=== PATIENT | male | born 1980 | race Caucasian/White ===

== ENCOUNTER 2024-02-04 10:31 | Emergency (ER) | payer OTHER, SELFPAY ==
[2024-02-04 10:42] VITALS: BP 142/94; PULSE 90; RESP 20; TEMP 36.8; O2SAT 100
--- NOTE | 2024-02-04 12:08 | ED.EAR ---
HPI - Ear Problem General Chief complaint: Ear Stated complaint: Ear Time Seen by Provider: 02/04/24 12:08 Source: patient, RN notes reviewed and old records reviewed Mode of arrival: ambulatory Limitations: no limitations History of Present Illness HPI Narrative: 43-year-old male to Express Care with complaint of right ear pain, decreased hearing and feeling off balance for 1 week. Patient denies any other sick symptoms at this time. Patient able tolerate fluids by mouth. Patient resting comfortably in exam room in no acute distress. Respirations even and nonlabored. Related Data Home Medications Medication Instructions Recorded Confirmed folic acid 1 mg tablet 1 mg PO DAILY 02/04/24 02/04/24 gabapentin 100 mg capsule 100 mg PO TID 02/04/24 02/04/24 hydroxyzine pamoate 50 mg capsule 50 mg PO DAILY PRN Anxiety 02/04/24 02/04/24 metoprolol tartrate 100 mg tablet 100 mg PO BID 02/04/24 02/04/24 potassium chloride 20 mEq 20 meq PO BID 02/04/24 02/04/24 tablet,extended release(part/cryst) thiamine mononitrate (vit B1) 100 100 mg PO DAILY 02/04/24 02/04/24 mg tablet (Vitamin B-1 (mononitrate)) Allergies Allergy/AdvReac Type Severity Reaction Status Date / Time No Known Allergies Allergy Verified 02/04/24 11:08 Review of Systems Review of Systems: All systems reviewed & are unremarkable except as noted in HPI and below Constitutional: Constitutional: Reports no additional constitutional complaints Eyes: Eyes: Reports no additional eye complaints ENT: Reports as per HPI, Denies Normal hearing present ( right ear) and Reports otalgia ( Right) Cardiovascular: Cardiovascular: Reports no additional cardiovascular complaints, Denies chest pain and Denies dyspnea Respiratory: Respiratory: Reports no additional respiratory complaints, Denies cough and Denies dyspnea Musculoskeletal: Musculoskeletal: Reports no additional musculoskeletal complaints Neurologic: Reports as per HPI and Reports dizziness ( intermittent) Psychiatric: Psychiatric: Reports no additional psychiatric complaints PMFSH Comments At the time of my signature, I reviewed and agree with the nursing past medical, surgical, social, and family history. There is no relevant family history pertinent to the patient complaint. Exam Const: General: cooperative, no acute distress, alert and well nourished Nutritional Appearance: well nourished Orientation/consciousness: patient oriented x3 Limitations: no limitations HENMT: Head: normal to inspection Ears: external ears normal, Abnormal EAC present cerumen impaction on the right and erythema on the right and TM abnormal dull on the right, erythematous on the right and with loss of landmarks on the right Face/Nose/Sinus: Normal external nose present, Normal nares present, normal facial exam, No erythema and No edema Face and sinus: normal facial exam, no erythema and no edema Mouth: Yes Normal oral and palatal mucosa present Eyes: General: appearance normal, both eyes and all related structures Neck: Neck: normal visual inspection, full ROM and no meningeal signs Lymphatic: no lymphadenopathy noted and no lymphedema noted Chest: Chest palpation & inspection: normal inspection of the chest Resp: Effort & Inspection: normal respiratory effort and able to speak in complete sentences Auscultation: clear to auscultation bilaterally Cardio: Jugular venous distension: no JVD Rate: regular rate Rhythm: regular rhythm Back/Spine/Pelvis: Cervical Spine: cervical ROM normal Skin: General skin exam: normal color, no rashes or lesions noted and turgor normal Neuro: General: patient oriented x3, gait normal, moves all extremities and no meningeal signs Speech: normal speech Gait exam (Neuro): Normal gait present Extrem: General: normal to inspection, full ROM and capillary refill normal Psych: Appearance: grossly normal and well kempt Course Course Emergency Course: Some parts of this dictation were generated by voice recognition software and may contain typographical and/or grammatical inaccuracies. Level of Care: Express Care Visit Vital Signs Vital signs: Vital Signs Temperature 36.8 C 02/04/24 10:42 Pulse Rate 90 02/04/24 10:42 Respiratory Rate 20 02/04/24 10:42 Blood Pressure 142/94 H 02/04/24 10:42 Pulse Oximetry 100 02/04/24 10:42 Oxygen Delivery Room Air 02/04/24 10:42 Temperature 36.8 C 02/04/24 10:42 Pulse Rate 90 02/04/24 10:42 Respiratory Rate 20 02/04/24 10:42 Blood Pressure 142/94 H 02/04/24 10:42 Pulse Oximetry 100 02/04/24 10:42 Oxygen Delivery Room Air 02/04/24 10:42 reviewed Procedures Ear Wax Removal Right Ear: Ear Wax Removal Date: 10/29/24 Results: Re-examined: cerumen removed completely TM Examination: TM(s) erythematous ( erythematous, dull, loss of landmarks) Ear Canal Exam: atraumatic Patient Tolerated Procedure: well and no complications Complications: no problems Technique: ear canal irrigated and ear canal curetted Medical Decision Making MDM Narrative Medical decision making narrative: 43-year-old male to Express Care with complaint of right ear pain, decreased hearing and feeling off balance for 1 week. Patient denies any other sick symptoms at this time. Patient able tolerate fluids by mouth. Patient resting comfortably in exam room in no acute distress. Respirations even and nonlabored. Patient is sitting comfortably in exam room nontoxic in appearance. on exam, right EAC with impacted cerumen. Removal completed with irrigation and curette. Patient tolerated well. On exam, right TM erythematous, dull, loss of landmarks. Consistent with otitis media. Patient appropriate for outpatient treatment and follow-up. Discharge instructions reviewed with patient, as well as provided in writing per nursing staff. The instructions also include specific and strict return/GO TO THE ER as well as f/u information. All questions have been answered, and the patient deny any further questions with discharge and discharge plan. Some parts of this dictation were generated by voice recognition software and may contain typographical and/or grammatical inaccuracies. Differential Diagnosis Differential Diagnosis: Cerumen impaction, otitis media, otitis externa, upper respiratory infection, sinusitis, foreign body in ear Vital Signs Vital Signs: Vital Signs Temperature 36.8 C 02/04/24 10:42 Pulse Rate 90 02/04/24 10:42 Respiratory Rate 20 02/04/24 10:42 Blood Pressure 142/94 H 02/04/24 10:42 Pulse Oximetry 100 02/04/24 10:42 Oxygen Delivery Room Air 02/04/24 10:42 Temperature 36.8 C 02/04/24 10:42 Pulse Rate 90 02/04/24 10:42 Respiratory Rate 20 02/04/24 10:42 Blood Pressure 142/94 H 02/04/24 10:42 Pulse Oximetry 100 02/04/24 10:42 Oxygen Delivery Room Air 02/04/24 10:42 Discharge Plan Discharge Clinical Impression: Acute right otitis media, Impacted cerumen, right ear Patient Disposition: Home, Self-Care Condition: Stable Instructions: Ear Infection (AC) Additional Instructions: please alternate Tylenol and ibuprofen every 6-8 hours as needed for pain please finish entire course of antibiotic treatment please review touch instructions regarding ear infections and implement suggestions as needed for new or worsening symptoms please go directly to emergency department Prescriptions: New amoxicillin 875 mg tablet 875 mg PO Q12H Qty: 20 0RF No Action hydroxyzine pamoate 50 mg capsule 50 mg PO DAILY PRN (Reason: Anxiety) folic acid 1 mg tablet 1 mg PO DAILY gabapentin 100 mg capsule 100 mg PO TID metoprolol tartrate 100 mg tablet 100 mg PO BID potassium chloride 20 mEq tablet,ER particles/crystals 20 meq PO BID thiamine mononitrate (vit B1) [Vitamin B-1 (mononitrate)] 100 mg tablet 100 mg PO DAILY Follow-up/Referrals: PHYSICIAN,[employer] [Primary Care Provider] - Stand Alone Forms: Work/School Release IP
== END 2024-02-04 12:30 | disposition home or self-care (01) ==
PROVIDERS: Emergency Provider Nurse Practitioner Family
DX: H66.91 Otitis media, unspecified, right ear (principal); H61.21 Impacted cerumen, right ear; I10 Essential (primary) hypertension
CPT/HCPCS: 69210; 99213; A9270; G0463